=== PATIENT | male | born 1980 | race Caucasian/White ===

== ENCOUNTER 2016-11-15 07:59 | Observation (INO) | payer OTHER ==
[~2016-11-15] VITALS: Ht 185.4 cm; Wt 115.5 kg
[2016-11-15 08:47] LABS: BASO % 0.5 % (0.0-1.0); EOS # 0.5 K/mm3 (0.0-0.50); EOS % 7.6 % (0.0-3.0); LARGE UNSTAINED CELL # 0.1 K/mm3 (0.0-0.4); LARGE UNSTAINED CELL % 1.4 % (0.0-4.0); LYMPH # 1.1 K/mm3 (1.5-4.5); LYMPH % 16.7 % (24.0-44.0); MEAN CORPUSCULAR HEMOGLOBIN 29.7 pg (27.0-33.0); MEAN CORPUSCULAR HGB CONC 35.5 g/dl (32.0-36.5); MEAN CORPUSCULAR VOLUME 83.7 fl (80.0-96.0); MONO # 0.4 K/mm3 (0.0-0.8); MONO % 6.1 % (0.0-5.0); NEUTROPHILS # 4.5 K/mm3 (1.8-7.7); NEUTROPHILS % 67.7 % (36.0-66.0); PLATELET COUNT, AUTOMATED 264 k/mm3 (150-450); RED CELL DISTRIBUTION WIDTH 12.4 % (11.5-14.5); WHITE BLOOD COUNT 6.6 K/mm3 (4.0-10.0)
[2016-11-15 09:04] LABS: ANION GAP 8 MEQ/L (8-16); BLOOD UREA NITROGEN 18 MG/DL (7-18); CALCIUM LEVEL 9.1 MG/DL (8.5-10.1); CARBON DIOXIDE LEVEL 29 MEQ/L (21-32); CHLORIDE LEVEL 102 MEQ/L (98-107); CREATININE FOR GFR 1.36 MG/DL (0.70-1.30); GLOMERULAR FILTRATION RATE > 60.0 (>60); GLUCOSE, FASTING 97 MG/DL (70-105); POTASSIUM SERUM 3.8 MEQ/L (3.5-5.1); SODIUM LEVEL 139 MEQ/L (136-145)
--- NOTE | 2016-11-15 09:05 | ECGEPIP ---
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
[2016-11-15] MEDS ORDERED: PSEUDOEPHEDRINE 60 MG TAB PO ONE (09:15)
--- NOTE | 2016-11-15 09:15 | REP ---
CHEST X-RAY PA AND LATERAL: 11/15/2016 CLINICAL HISTORY: Cough. FINDINGS: No prior study. Two views show the lungs somewhat hypoinflated but without infiltrate, effusion or mass. There is minor lateral pleural thickening in both sides. No apical thickening scarring or pneumothorax. There are some crowded markings in the bases bilaterally. The heart size is not enlarged. There is no vascular redistribution or pulmonary edema. The aorta is normal. Airway is intact. The thorax shows no compression deformity of focal lesion. No free air under the diaphragm. IMPRESSION: 1. Some mild hypoinflation with crowded markings in the bases but no infiltrate, effusion, cardiomegaly, edema, mass or other significant finding. Signed by Molina Reed MD 11/15/2016 09:21 A
[2016-11-15] MEDS ORDERED: PRAZ2CAP PO (14:27)
[2016-11-15] MEDS ORDERED: HYDR25TAB PO (14:27)
[2016-11-15] MEDS ORDERED: SING10TA32 PO (14:27)
[2016-11-15] MEDS ORDERED: CETI10TA PO (14:27)
[2016-11-15] MEDS ORDERED: ALBU17IN INH (14:27)
[2016-11-15] MEDS ORDERED: ADV250INH INH (14:27)
[2016-11-15] MEDS ORDERED: TRAZ25TA PO (14:27)
[2016-11-15 15:25] VITALS: BP 134/78
[2016-11-15 17:10] VITALS: BP 129/77
--- NOTE | 2016-11-15 17:18 | EDDOCDS ---
Physician Documentation [facility] Name: Efraín Flores Age: 36 yrs Sex: Male : 1980 Arrival Date: 11/15/2016 Time: 07:59 Bed OBSERVATION Private MD: Disposition: 11/15/16 13:25 Hospitalization ordered by Narendra Atkinson for Inpatient Admission. Preliminary diagnosis is Syncope and collapse. - Bed requested for PCU. - Status is Inpatient Admission. kc3 - Condition is Stable. - Problem is new. - Symptoms are unchanged. Historical: - Allergies: no known allergies; - Home Meds: 1. Advair Diskus 250-50 mcg/dose Inhl dsdv 1 puff 2 times per day (Last dose: 11/14/2016) 2. Singulair 10 mg Oral tab 1 tab once daily (Last dose: 11/14/2016) 3. albuterol sulfate 90 mcg/actuation Inhl HFAA 2 puffs every 4-6 hours for Acute Asthma Attack (Last dose: 11/15/2016) 4. Zyrtec 10 mg Oral TbDL 10 mg daily (Last dose: 11/14/2016) 5. hydrochlorothiazide 25 mg Oral tab 1 tab once daily (Last dose: 11/14/2016) 6. trazodone 50 mg Oral tab nightly (Last dose: 11/14/2016) 7. prazosin 2 mg Oral cap nightly (Last dose: 11/14/2016) - PMHx: Asthma; Hypertension; Seasonal Allergies; night terrors; - PSHx: Vasectomy (2013); PRK Eye Surgery (2009); Appendectomy; Tonsillectomy; Jaw repair; - Social history: Smoking status: Patient states was never smoker of tobacco. No barriers to communication noted, The patient speaks fluent Croatian. - Family history: Not pertinent. - : The pt / caregiver states he / she is not on anticoagulants. Home medication list is obtained from the patient. - Exposure Risk Screening:: None identified. Vital Signs: 11/15 08:07 BP 126 / 80; Pulse 87; Resp 20; Temp 97.8(O); Pulse Ox 96% on R/A; Weight 108.86 kg / jjr 240 lbs (R); Height 6 ft. 1 in. (185.42 cm) (R); Pain 0/10; 08:48 BP 124 / 75 RA Supine (auto/lg); Pulse 85; jjr 08:48 BP 129 / 85 RA Sitting (auto/lg); Pulse 97; jjr 08:49 BP 119 / 75 RA Standing (auto/lg); Pulse 109; jjr 10:06 BP 131 / 69 (auto/); kc3 10:06 Pulse 82 MON; Pulse Ox 98% ; kc3 10:36 BP 122 / 71 (auto/); kc3 10:36 Pulse 86 MON; Pulse Ox 97% ; kc3 11:07 BP 121 / 79 (auto/); kc3 11:07 Pulse 82 MON; Pulse Ox 97% ; kc3 11:21 Pulse 84 MON; Pulse Ox 98% ; kc3 11:44 Pulse 92 MON; Pulse Ox 95% ; kc3 12:20 Pulse 80 MON; Pulse Ox 97% ; kc3 13:47 BP 134 / 78 (auto/); kc3 13:48 Pulse 80 MON; Pulse Ox 96% ; kc3 14:04 Pulse 74 MON; Pulse Ox 96% ; kc3 14:19 Pulse 84 MON; Pulse Ox 96% ; kc3 14:42 Pulse 78 MON; Pulse Ox 97% ; kc3 15:05 Pulse 84 MON; Pulse Ox 97% ; kc3 15:20 Pulse 82 MON; Pulse Ox 97% ; kc3 15:44 Pulse 76 MON; Pulse Ox 97% ; kc3 16:01 Pulse 84 MON; Pulse Ox 96% ; kc3 16:10 BP 119 / 69 (auto/); kc3 16:10 Pulse 82 MON; Pulse Ox 97% ; kc3 16:40 BP 120 / 93 (auto/); kc3 16:40 Pulse 86 MON; Pulse Ox 95% ; kc3 17:15 BP 119 / 76; Pulse 87; Resp 18; Temp 98.1(TE); Pulse Ox 97% on R/A; Pain 0/10; kc3 08:07 Body Mass Index 31.66 (108.86 kg, 185.42 cm) jjr MDM: 08:05 Orthostatic VS ordered. sd1 08:05 IV Saline Lock ordered. 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 sd1 08:06 CBC with Diff Ordered. EDMS 08:06 MED Profile Ordered. EDMS 08:07 ECG WITH READING ER PHYS+CARDIAG ordered. EDMS 08:08 Chest, 2 View (pa\E\lat) Ordered. EDMS 08:09 -Influenza A&B Rapid Antigen - Nose Ordered. EDMS 08:38 NS 0.9% 1000 ml IV at bolus once ordered. sd1 08:38 Sudafed 60 mg PO once ordered. sd1 09:27 CBC with Diff Reviewed. sd1 09:27 MED Profile Reviewed. sd1 09:27 -Influenza A&B Rapid Antigen - Nose Reviewed. sd1 09:28 REGULAR+DIET ordered. EDMS 10:10 Financial registration complete. lg 10:10 [facility] Payment Agreement was scanned into [employer] and attached to record. lg 11:13 EKG-ADULT Reviewed. sd1 11:13 Chest, 2 View (pa\E\lat) Reviewed. sd1 11:15 Redraw CIP &Troponin (put time in details section) ordered. sd1 11:15 Repeat EKG (put time details section) ordered. sd1 11:18 Redraw CIP &Troponin (put time in details section) complete. deg 11:18 Repeat EKG (put time details section) complete. deg 11:19 ECG WITH READING ER PHYS ordered. EDMS 11:19 CARDIAC MARKER PANEL Ordered. EDMS 12:40 CARDIAC INJURY PROFILE Ordered. EDMS 12:40 TROPONIN Ordered. EDMS 12:51 MED Profile Reviewed. sd1 13:17 MED Profile Reviewed. sd1 13:17 CARDIAC INJURY PROFILE Reviewed. sd1 13:17 TROPONIN Reviewed. sd1 13:21 D-Dimer Quant Ordered. EDMS 14:02 TROPONIN Ordered. EDMS 14:03 Admission / Observation Status ordered. EDMS 14:03 ELECTROCARDIOGRAM ADULT ordered. EDMS 14:03 ELECTROCARDIOGRAM ADULT ordered. EDMS 14:03 ELECTROCARDIOGRAM ADULT ordered. EDMS 14:03 REGULAR DIET ordered. EDMS 15:07 T-Sheet-- Draft Copy was scanned into [employer] and attached to record. gb 15:07 PCR was scanned into [employer] and attached to record. gb Administered Medications: 08:48 Drug: NS 0.9% 1000 ml [sodium chloride 0.9 % intravenous solution] Route: IV; Rate: jjr bolus; Site: left antecubital; 16:34 Follow up: IV Status: Completed infusion kc3 09:41 Drug: Sudafed 60 mg Route: PO; kc3 Signatures: Dispatcher [employer] EDMS Deya Doll MD MD sd1 Juventino Velazquezise, Dat Instructor Unit deg ZevTiera, Reg Reg gb Karie Ho, Reg Reg lg Sagrario Mccall, RN RN jjr Zafar Burton, Sissy Bianchi RN, mts,RN RN kc3 The chart was reviewed and I authenticate all verbal orders and agree with the evaluation and treatment provided.Corrections: (The following items were deleted from the chart) 12:40 12:36 CARDIAC INJURY PROFILE+LAB ordered. EDMS EDMS 12:40 12:36 TROPONIN+LAB ordered. EDMS EDMS Attachments: 10:10 [facility] Payment Agreement lg 15:07 T-Sheet-- Draft Copy gb MTDD
--- NOTE | 2016-11-15 17:18 | EDDOCDS ---
Nurse's Notes [facility] Name: Odin Flores Age: 36 yrs Sex: Male : 1980 Arrival Date: 11/15/2016 Time: 07:59 Bed OBSERVATION Private MD: Diagnosis: Syncope and collapse Presentation: 11/15 08:02 Presenting complaint: EMS states: cough and nasal congestion since this past Saturday jjr with tightness to left anterior chest, approx one hour ago during PT pt had coughing spell with dizziness and syncopal episode. Adult Sepsis Screening: The patient does not have new or worsening altered mentation. Patient's respiratory rate is less than 22. Systolic blood pressure is greater than 100. Patient has a qSOFA score of 0- Negative Sepsis Screen. Suicide/Homicide risk assessment- the patient denies having any suicidal and/or homicidal ideations and does not present with any other emotional, behavioral or mental health complaints. 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 Transition of care: patient was not received from another setting of care. 08:02 Acuity: JANET Level 3 jjr 08:02 Method Of Arrival: Ambulance jjr Triage Assessment: 08:11 General: Appears in no apparent distress, well nourished, well groomed, Behavior is jjr appropriate for age. Pain: Denies pain. HIV screening NA for this visit Offered previously. Neurological: Reports dizziness. Cardiovascular: Chest pain is denied. Respiratory: Airway is patent Respiratory effort is even, unlabored, Respiratory pattern is regular, Breath sounds are diminished bilaterally. Derm: Skin is dry, Skin is flushed, Skin temperature is warm. Historical: - Allergies: no known allergies; - Home Meds: 1. Advair Diskus 250-50 mcg/dose Inhl dsdv 1 puff 2 times per day (Last dose: 11/14/2016) 2. Singulair 10 mg Oral tab 1 tab once daily (Last dose: 11/14/2016) 3. albuterol sulfate 90 mcg/actuation Inhl HFAA 2 puffs every 4-6 hours for Acute Asthma Attack (Last dose: 11/15/2016) 4. Zyrtec 10 mg Oral TbDL 10 mg daily (Last dose: 11/14/2016) 5. hydrochlorothiazide 25 mg Oral tab 1 tab once daily (Last dose: 11/14/2016) 6. trazodone 50 mg Oral tab nightly (Last dose: 11/14/2016) 7. prazosin 2 mg Oral cap nightly (Last dose: 11/14/2016) - PMHx: Asthma; Hypertension; Seasonal Allergies; night terrors; - PSHx: Vasectomy (2013); PRK Eye Surgery (2009); Appendectomy; Tonsillectomy; Jaw repair; - Social history: Smoking status: Patient states was never smoker of tobacco. No barriers to communication noted, The patient speaks fluent Hebrew. - Family history: Not pertinent. - : The pt / caregiver states he / she is not on anticoagulants. Home medication list is obtained from the patient. - Exposure Risk Screening:: None identified. Screenin:13 Screening information is obtained from the patient. Fall risk: No risks identified. jjr Assistance ADL's: requires no assistance with activities of daily living. Abuse/DV Screen: The patient / caregiver reports he/she is: not in a situation that causes fear, pain or injury. Nutritional screening: No deficits noted. Advance Directives: There is no active DNR order. home support is adequate. Assessment: 08:13 Neurological: Level of Consciousness is awake, alert, Oriented to person, place, time. jjr Cardiovascular: Rhythm is sinus rhythm. 09:15 General: Appears in no apparent distress, comfortable, Behavior is appropriate for age, kc3 cooperative. Pain: Denies pain. Neurological: Level of Consciousness is awake, alert, obeys commands, Oriented to person, place, time. Cardiovascular: Rhythm is sinus rhythm No ectopy. Respiratory: Respiratory effort is even, unlabored, Respiratory pattern is regular, symmetrical. Derm: Skin is pink, warm & dry. 10:08 General: Pt reports having 2 episodes of "passing out while sitting in bed when I start kc3 coughing and then I get tunnel vision." No distress noted at this time. Dr. Irma sifuentes. . 11:00 General: Appears in no apparent distress, comfortable, Behavior is appropriate for age, kc3 cooperative. Pain: Denies pain. Neurological: Level of Consciousness is awake, alert, obeys commands, Oriented to person, place, time. Cardiovascular: Rhythm is sinus rhythm. Respiratory: Respiratory effort is even, unlabored, Respiratory pattern is regular, symmetrical. Derm: Skin is pink, warm & dry. 12:18 General: Appears in no apparent distress, comfortable, Behavior is appropriate for age, kc3 cooperative. Pain: Denies pain. Neurological: Level of Consciousness is awake, alert, obeys commands, Oriented to person, place, time. Cardiovascular: Rhythm is sinus rhythm. Respiratory: Airway is patent Respiratory effort is even, unlabored, Respiratory pattern is regular, symmetrical, Reports cough that is non-productive. Derm: Skin is pink, warm & dry. 13:00 General: Appears in no apparent distress, comfortable, Behavior is appropriate for age, kc3 cooperative. Pain: Denies pain. Neurological: Level of Consciousness is awake, alert, obeys commands, Oriented to person, place, time. Cardiovascular: Rhythm is sinus rhythm. Respiratory: Respiratory effort is even, unlabored. Derm: Skin is pink, warm & dry. 14:10 General: Appears in no apparent distress, comfortable, Behavior is appropriate for age, kc3 cooperative. Pain: Denies pain. Neurological: Level of Consciousness is awake, alert, obeys commands, Oriented to person, place, time. Cardiovascular: Rhythm is sinus rhythm. Respiratory: Respiratory effort is even, unlabored, Respiratory pattern is regular, symmetrical. Derm: Skin is pink, warm & dry. 14:53 General: Appears in no apparent distress, comfortable, Behavior is appropriate for age, kc3 cooperative. Pain: Denies pain. Neurological: Level of Consciousness is awake, alert, obeys commands, Oriented to person, place, time. Cardiovascular: Rhythm is sinus rhythm. Respiratory: Respiratory effort is even, unlabored, Respiratory pattern is regular, symmetrical. Derm: Skin is pink, warm & dry. 15:20 General: Pt noted to have syncopal episode after coughing. Pt with no distress after kc3 episode. Vital signs stable. Dr. Irma sifuentes. . 16:17 General: Appears in no apparent distress, comfortable, Behavior is appropriate for age, kc3 cooperative. General: Pt noted to have syncopal episode while coughing. No distress noted. Pt reports no complaints at this time. Vital signs stable. Will continue to monitor. . Pain: Denies pain. Neurological: Level of Consciousness is awake, alert, obeys commands, Oriented to person, place, time. Cardiovascular: Rhythm is sinus rhythm. Respiratory: Respiratory effort is even, unlabored. Derm: Skin is pink, warm & dry. 17:12 General: Appears in no apparent distress, comfortable, Behavior is appropriate for age, kc3 cooperative. Pain: Denies pain. Neurological: Level of Consciousness is awake, alert, obeys commands, Oriented to person, place, time. Cardiovascular: Rhythm is sinus rhythm No ectopy. Respiratory: Airway is patent Respiratory effort is even, unlabored, Respiratory pattern is regular, symmetrical. Derm: Skin is pink, warm & dry. Vital Signs: 08:07 BP 126 / 80; Pulse 87; Resp 20; Temp 97.8(O); Pulse Ox 96% on R/A; Weight 108.86 kg jjr (R); Height 6 ft. 1 in. (185.42 cm) (R); Pain 0/10; 08:48 BP 124 / 75 RA Supine (auto/lg); Pulse 85; jjr 08:48 BP 129 / 85 RA Sitting (auto/lg); Pulse 97; jjr 08:49 BP 119 / 75 RA Standing (auto/lg); Pulse 109; jjr 10:06 BP 131 / 69 (auto/); kc3 10:06 Pulse 82 MON; Pulse Ox 98% ; kc3 10:36 BP 122 / 71 (auto/); kc3 10:36 Pulse 86 MON; Pulse Ox 97% ; kc3 11:07 BP 121 / 79 (auto/); kc3 11:07 Pulse 82 MON; Pulse Ox 97% ; kc3 11:21 Pulse 84 MON; Pulse Ox 98% ; kc3 11:44 Pulse 92 MON; Pulse Ox 95% ; kc3 12:20 Pulse 80 MON; Pulse Ox 97% ; kc3 13:47 BP 134 / 78 (auto/); kc3 13:48 Pulse 80 MON; Pulse Ox 96% ; kc3 14:04 Pulse 74 MON; Pulse Ox 96% ; kc3 14:19 Pulse 84 MON; Pulse Ox 96% ; kc3 14:42 Pulse 78 MON; Pulse Ox 97% ; kc3 15:05 Pulse 84 MON; Pulse Ox 97% ; kc3 15:20 Pulse 82 MON; Pulse Ox 97% ; kc3 15:44 Pulse 76 MON; Pulse Ox 97% ; kc3 16:01 Pulse 84 MON; Pulse Ox 96% ; kc3 16:10 BP 119 / 69 (auto/); kc3 16:10 Pulse 82 MON; Pulse Ox 97% ; kc3 16:40 BP 120 / 93 (auto/); kc3 16:40 Pulse 86 MON; Pulse Ox 95% ; kc3 17:15 BP 119 / 76; Pulse 87; Resp 18; Temp 98.1(TE); Pulse Ox 97% on R/A; Pain 0/10; kc3 08:07 Body Mass Index 31.66 (108.86 kg, 185.42 cm) jjr Vitals: 08:07 Glucose Measurement D-stick done by EMS. Log In Time N/A - ambulance arrival. jjr ED Course: 08:00 Patient visited by Olga Velazquez, Machine Tool Dresser. deg 08:00 Patient moved to Waiting deg 08:01 Sagrario Mccall, RN is Primary Nurse. jjr 08:01 Patient moved to 18 jjr 08:04 Triage Initiated jjr 08:13 Patient visited by Sagrario Mccall, LETICIA. jjr 08:13 The patient / caregiver is instructed regarding the plan of care and ED course. Cardiac jjr monitor on. Pulse ox on. NIBP on. 08:15 Deya Doll MD is Attending Physician. sd1 08:20 Patient visited by Deya Doll MD. sd1 08:33 MED Profile Sent. jjr 08:33 CBC with Diff Sent. jjr 08:35 EKG done. (by ED staff). Reviewed by Deya Doll MD. rn1 08:39 -Influenza A&B Rapid Antigen - Nose Sent. jjr 09:17 Patient visited by Sissy Allen RN. kc3 09:44 EKG-ADULT Returned. EDMS 09:48 Chest, 2 View (pa\\E\\lat) Returned. EDMS 09:59 Patient visited by Yakov Hayden PCA. jlf 10:10 [facility] Payment Agreement was scanned into Language[employer] and attached to record. lg 10:12 Maintain field IV. Dressing intact. Site clean & dry. Gauge & site: 18G left AC. kc3 11:15 Patient moved to OBSERVATION sd1 12:00 Patient visited by Sissy Allen,LETICIA. kc3 12:19 Patient visited by Sissy Allen,LETICIA. kc3 13:25 Narendra Atkinson is Hospitalizing Provider. sd1 13:50 D-Dimer Quant Sent. kc3 14:25 Patient visited by Sissy Allen RN. kc3 15:07 T-Sheet-- Draft Copy was scanned into Language[employer] and attached to record. gb 15:07 PCR was scanned into [employer] and attached to record. gb 15:42 Patient visited by Sissy Allen RN. kc3 17:15 No procedures done that require assistance. kc3 Administered Medications: 08:48 Drug: NS 0.9% 1000 ml [sodium chloride 0.9 % intravenous solution] Route: IV; Rate: jjr bolus; Site: left antecubital; 16:34 Follow up: IV Status: Completed infusion kc3 09:41 Drug: Sudafed 60 mg Route: PO; kc3 Order Results: Lab Order: CBC with Diff; SPEC'M 11/15/16 08:29 Test: WHITE BLOOD COUNT; Value: 6.6; Range: 4.0-10.0; Units: K/mm3; Status: F Test: RED BLOOD COUNT; Value: 4.54; Range: 4.30-6.10; Units: M/mm3; Status: F Test: HEMOGLOBIN; Value: 13.5; Range: 14.0-18.0; Abnormal: Below low normal; Units: g/dl; Status: F Test: HEMATOCRIT; Value: 38.1; Range: 42.0-52.0; Abnormal: Below low normal; Units: %; Status: F Test: MEAN CORPUSCULAR VOLUME; Value: 83.7; Range: 80.0-96.0; Units: fl; Status: F Test: MEAN CORPUSCULAR HEMOGLOBIN; Value: 29.7; Range: 27.0-33.0; Units: pg; Status: F Test: MEAN CORPUSCULAR HGB CONC; Value: 35.5; Range: 32.0-36.5; Units: g/dl; Status: F Test: RED CELL DISTRIBUTION WIDTH; Value: 12.4; Range: 11.5-14.5; Units: %; Status: F Test: PLATELET COUNT, AUTOMATED; Value: 264; Range: 150-450; Units: k/mm3; Status: F Test: NEUTROPHILS %; Value: 67.7; Range: 36.0-66.0; Abnormal: Above high normal; Units: %; Status: F Test: LYMPH %; Value: 16.7; Range: 24.0-44.0; Abnormal: Below low normal; Units: %; Status: F Test: MONO %; Value: 6.1; Range: 0.0-5.0; Abnormal: Above high normal; Units: %; Status: F Test: EOS %; Value: 7.6; Range: 0.0-3.0; Abnormal: Above high normal; Units: %; Status: F Test: BASO %; Value: 0.5; Range: 0.0-1.0; Units: %; Status: F Test: LARGE UNSTAINED CELL %; Value: 1.4; Range: 0.0-4.0; Units: %; Status: F Test: NEUTROPHILS #; Value: 4.5; Range: 1.8-7.7; Units: K/mm3; Status: F Test: LYMPH #; Value: 1.1; Range: 1.5-4.5; Abnormal: Below low normal; Units: K/mm3; Status: F Test: MONO #; Value: 0.4; Range: 0.0-0.8; Units: K/mm3; Status: F Test: EOS #; Value: 0.5; Range: 0.0-0.50; Units: K/mm3; Status: F Test: BASO #; Value: 0.0; Range: 0.0-0.2; Units: K/mm3; Status: F Test: LARGE UNSTAINED CELL #; Value: 0.1; Range: 0.0-0.4; Units: K/mm3; Status: F Lab Order: MED Profile; SPEC'M 11/15/16 08:29 Test: GLUCOSE, FASTING; Value: 97; Range: 70-105; Units: MG/DL; Status: F Test: BLOOD UREA NITROGEN; Value: 18; Range: 7-18; Units: MG/DL; Status: F Test: CREATININE FOR GFR; Value: 1.36; Range: 0.70-1.30; Abnormal: Above high normal; Units: MG/DL; Status: F Test: GLOMERULAR FILTRATION RATE; Value: > 60.0; Range: >60; Status: F Test: SODIUM LEVEL; Value: 139; Range: 136-145; Units: MEQ/L; Status: F Test: POTASSIUM SERUM; Value: 3.8; Range: 3.5-5.1; Units: MEQ/L; Status: F Test: CHLORIDE LEVEL; Value: 102; Range: 98-107; Units: MEQ/L; Status: F Test: CARBON DIOXIDE LEVEL; Value: 29; Range: 21-32; Units: MEQ/L; Status: F Test: ANION GAP; Value: 8; Range: 8-16; Units: MEQ/L; Status: F Test: CALCIUM LEVEL; Value: 9.1; Range: 8.5-10.1; Units: MG/DL; Status: F Test Note: ; Units are mL/min/1.73 m2 Chronic Kidney Disease Staging per NKF: Stage I & II GFR >=60 Normal to Mildly Decreased Stage III GFR 30-59 Moderately Decreased Stage IV GFR 15-29 Severely Decreased Stage V GFR <15 Very Little GFR Left ESRD GFR <15 on COTTON CLEANER Lab Order: -Influenza A&B Rapid Antigen - Nose; SPEC'M 11/15/16 08:29 Test: INFLUENZA A RAPID SCR by ICA; Value: INFLUENZA A RESULTS NEGATIVE; Status: F Test: INFLUENZA A RAPID SCR by ICA; Value: Comments:; Status: F Test: INFLUENZA B RAPID SCR by ICA; Value: INFLUENZA B RESULTS NEGATIVE; Status: F Test Note: ; The Influenza test is a direct rapid immunoassay for the qualitative detection of Influenza viral antigen. Cell culture (Viral Culture) testing should be considered to confirm NEGATIVE results and to assist in detecting other viruses that can provide similar clinical symptoms. Please contact the lab within 24 hours [phone] if confirmatory testing is desired. Lab Order: CARDIAC MARKER PANEL; SPEC'M 11/15/16 13:29 Test: CPK CREATINE PHOSPHOKINASE; Value: 194; Range: 39-308; Units: U/L; Status: F Test: CK-MB VALUE MASS; Value: 2.9; Range: 0.0-3.6; Units: NG/ML; Status: F Test: MB/CK RELATIVE INDEX; Value: 1.49; Range: < OR =4; Status: F Test: TROPONIN I; Value: < 0.02; Range: < 0.10; Units: NG/ML; Status: F Test Note: ; DIAGNOSIS CRITERIA MMB ng/ml Relative Index (RI) NON-AMI < or = 5 N/A MANLEY ZONE > 5 < or = 4 AMI > 5 > 4 Lab Order: CARDIAC INJURY PROFILE; SPEC'M 11/15/16 08:29 Test: CPK CREATINE PHOSPHOKINASE; Value: 211; Range: 39-308; Units: U/L; Status: F Test: CK-MB VALUE MASS; Value: 3.3; Range: 0.0-3.6; Units: NG/ML; Status: F Test: MB/CK RELATIVE INDEX; Value: 1.56; Range: < OR =4; Status: F Test Note: ; DIAGNOSIS CRITERIA MMB ng/ml Relative Index (RI) NON-AMI < or = 5 N/A MANLEY ZONE > 5 < or = 4 AMI > 5 > 4 Lab Order: TROPONIN; SPEC'M 11/15/16 08:29 Test: TROPONIN I; Value: < 0.02; Range: < 0.10; Units: NG/ML; Status: F Test Note: ; Troponin I Reference Interval for Qwite LOCI: 99th Percentile= 0.00-0.045 ng/ml Risk Stratification: <= 0.10 ng/ml Decreased Risk for Adverse Clinical Events. 0.10-1.50 ng/ml Increased Risk for Adverse Clinical Events. Evaluation of additional criterion and/or repeat testing in 2-6 hours is suggested to rule out myocardial damage. >= 1.50 ng/ml Indicative of Myocardial Injury. 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 Two views show the lungs somewhat hypoinflated but; without infiltrate, effusion or mass. There is minor lateral pleural thickening; in both sides. No apical thickening scarring or pneumothorax. There are some; crowded markings in the bases bilaterally. The heart size is not enlarged.; There is no vascular redistribution or pulmonary edema. The aorta is normal.; Airway is intact.; ; The thorax shows no compression deformity of focal lesion. No free air under the; diaphragm.; ; IMPRESSION:; ; 1. Some mild hypoinflation with crowded markings in the bases but no infiltrate,; effusion, cardiomegaly, edema, mass or other significant finding.; ; ; Signed by; Molina Reed MD 11/15/2016 09:21 A; Outcome: 13:25 Decision to Hospitalize by Provider. sd1 17:15 Discharge Assessment: patient administered narcotics - no. The following High Risk kc3 Discharge criteria are identified: None. Admitted to PCU accompanied by nurse, on monitor, with chart. Condition: stable. No special radiology studies were completed. Property :Personal belongings accompany Pt. 17:17 Patient left the ED. kc3 Signatures: Dispatcher [employer] EDND Deya Doll MD MD sd1 Olga Velazquez, Machine Tool Dresser Unit deg Tiera Brothers, Reg Reg gb Karie Ho, Reg Reg lg Sagrario Mccall, Yakov Krueger RN, ABELINO ASSISTED LIVING DIRECTOR Jean Marie Landers rn1 Sissy Allen,LETICIA RN kc3 MTDD
[2016-11-15] MEDS: NS 1,000 ML IV SCH (17:43)
[2016-11-15] MEDS: ENOXAPARIN 30 MG/0.3 ML SYR (J1650) SC SCH (17:44)
[2016-11-15 19:44] VITALS: BP_SYST 139; BP_SYST 145; BP_DIAS 74; BP_DIAS 83; BP_DIAS 89
--- NOTE | 2016-11-15 19:48 | HPE ---
DATE OF ADMISSION: 11/15/2016 REASON FOR ADMISSION: Syncopal episode. PRIMARY CARE PROVIDER: The patient goes to [facility] at [place]. HISTORY OF PRESENT ILLNESS: The patient is a 36-year-old male with past medical history significant for asthma, hypertension, presented to the emergency room after had a syncopal episode earlier today. He stated he has been having flu-like symptoms since last Saturday with some chest tightness over the left side of his chest, nonradiating, not associated with any dizziness, shortness of breath or diaphoresis. Stated the pain lasted about 5 minutes. Today was radiating down his left arm. He had one episode around 7:00. He has also been having multiple syncopal episodes, usually associated with cough. EKG was done in the emergency room, which showed sinus rhythm with some arrhythmia, early polarization. Two sets of troponins were negative. The patient had mildly elevated creatinine 1.3. In the emergency room, the patient was given one bolus of normal saline. He was given one dose of Sudafed for his congestion, however, because he was complaining of chest pain with some irregularities on EKG he was admitted for cardiac rule out under hospitalist service. REVIEW OF SYSTEMS: 12-point review of systems obtained, all of which was negative except for those mentioned above. PAST MEDICAL HISTORY: Significant for asthma, hypertension, seasonal allergies, night terrors, sleep apnea with C-PAP machine. ALLERGIES: No known drug allergies. PAST SURGICAL HISTORY: Significant for vasectomy, appendectomy, tonsillectomy, jaw repair and eye surgery in 2009. HOME MEDICATIONS: Include Advair Diskus, Singulair, albuterol, Zyrtec, HCTZ, trazodone, prazosin. SOCIAL HISTORY: The patient lives with his and four kids. No alcohol or tobacco use. FAMILY HISTORY: The patient denies any family history of heart disease. States his mother has history of hypertension, COPD. Father has history of diabetes. PHYSICAL EXAMINATION: Vital signs: Blood pressure 126/80, pulse 87, respiratory rate 20, temperature 97.8, pulse oximetry 96% on room air. HEENT: Pupils equal, round, reactive to light and accommodation. Neck supple. No jugular venous distention (JVD). Lungs: Clear bilaterally. Abdomen: Soft, nontender, nondistended. Extremities: No clubbing, cyanosis or edema. Cardiac: Regular rate and rhythm. LABORATORY FINDINGS: Sodium 139, potassium 3.8, chloride 102, BUN 18, creatinine 1.36, troponin negative times two. CK 219, repeat was 194, WBC 6.6, hemoglobin 13.5, hematocrit 30.1, platelet count 264, D-dimer 270. Chest x-ray was done, which was negative for any infiltrate, effusion, cardiomegaly, edema or mass. ASSESSMENT/PLAN 1. Chest pain. May be secondary to condition of upper respiratory infection. We will admit the patient to telemetry and monitor on cardiac monitoring. Repeat troponins times three sets. Repeat EKG. The patient has no family history of cardiac disease, a VALERIA score of one. 2. History of asthma. We will continue the patient's inhaler. 3. History of sleep apnea. We will continue the patient's C-PAP machine. 4. History of hypertension. We will hold the patient's current blood pressure medication in light of acute kidney injury. 5. History of acute kidney injury. The patient received one bolus of normal saline. We will repeat labs in the morning, hold HCTZ. 6. Deep venous thrombosis (DVT) prophylaxis of Lovenox, subcutaneously.
--- NOTE | 2016-11-15 21:20 | ECGEPIP ---
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
[2016-11-15 23:47] VITALS: BP 131/85
[2016-11-16 03:01] VITALS: BP_SYST 122; BP_SYST 130; BP_SYST 135; BP_DIAS 74; BP_DIAS 84; BP_DIAS 90
[2016-11-16] MEDS: NS 1,000 ML IV SCH (04:22)
[2016-11-16 05:35] LABS: BASO % 0.5 % (0.0-1.0); EOS # 0.5 K/mm3 (0.0-0.50); EOS % 7.2 % (0.0-3.0); LARGE UNSTAINED CELL # 0.2 K/mm3 (0.0-0.4); LARGE UNSTAINED CELL % 2.1 % (0.0-4.0); LYMPH # 1.7 K/mm3 (1.5-4.5); LYMPH % 23.1 % (24.0-44.0); MEAN CORPUSCULAR HEMOGLOBIN 29.6 pg (27.0-33.0); MEAN CORPUSCULAR HGB CONC 34.8 g/dl (32.0-36.5); MEAN CORPUSCULAR VOLUME 85.1 fl (80.0-96.0); MONO # 0.4 K/mm3 (0.0-0.8); MONO % 5.9 % (0.0-5.0); NEUTROPHILS # 4.5 K/mm3 (1.8-7.7); NEUTROPHILS % 61.1 % (36.0-66.0); PLATELET COUNT, AUTOMATED 268 k/mm3 (150-450); RED CELL DISTRIBUTION WIDTH 12.3 % (11.5-14.5); WHITE BLOOD COUNT 7.3 K/mm3 (4.0-10.0)
[2016-11-16 05:50] LABS: ALBUMIN 3.4 GM/DL (3.2-5.2); ALBUMIN/GLOBULIN RATIO 1.21 (1.00-1.93); ALKALINE PHOSPHATASE 65 U/L (45-117); ALT/SGPT 20 U/L (12-78); ANION GAP 8 MEQ/L (8-16); AST/SGOT 13 U/L (15-37); BILIRUBIN,TOTAL 0.6 MG/DL (0.2-1.0); BLOOD UREA NITROGEN 15 MG/DL (7-18); CALCIUM LEVEL 8.4 MG/DL (8.5-10.1); CARBON DIOXIDE LEVEL 27 MEQ/L (21-32); CHLORIDE LEVEL 108 MEQ/L (98-107); CREATININE FOR GFR 1.16 MG/DL (0.70-1.30); GLOMERULAR FILTRATION RATE > 60.0 (>60); GLUCOSE, FASTING 87 MG/DL (70-105); MAGNESIUM LEVEL 2.1 MG/DL (1.8-2.4); POTASSIUM SERUM 3.9 MEQ/L (3.5-5.1); SODIUM LEVEL 143 MEQ/L (136-145); TOTAL PROTEIN 6.2 GM/DL (6.4-8.2)
[2016-11-16] MEDS: ENOXAPARIN 30 MG/0.3 ML SYR (J1650) SC SCH (09:21)
[2016-11-16] MEDS ORDERED: guaiFENesin DM LIQ 10ML UD PO PRN (10:30)
[2016-11-16 12:00] VITALS: BP 137/94
[2016-11-16] MEDS ORDERED: GUAIDM5UD PO (13:29)
--- NOTE | 2016-11-16 17:35 | DSES ---
DATE OF ADMISSION: 11/15/2016 DATE OF DISCHARGE: ATTENDING PHYSICIAN: Dr. Suzie Guadarrama PRIMARY CARE PHYSICIAN: Unknown. REFERRING PHYSICIAN: None. CONSULTING PHYSICIAN: None. CONDITION ON DISCHARGE: Stable. FINAL DIAGNOSIS: Vasovagal syncope. PROCEDURES: None. HISTORY OF PRESENT ILLNESS: Patient is a 36-year-old male with past medical history of asthma and hypertension who presented to the emergency room after having a syncopal episode earlier today. He stated that he was having flu-like symptoms last Saturday with some chest tightness over the left side of his chest radiating, not associated with any dizziness or shortness of breath or diaphoresis. He said that the pain lasted for about 5 minutes and did not recur. Patient noted that he has been having this persistent cough, and usually after these coughing episodes he has a syncopal episode. Electrocardiogram was done in the emergency room that showed sinus rhythm with some early repolarization. Two sets of troponins were completed and were negative. Patient acquired several sets of cardiac enzymes, all of which have remained negative throughout the hospital course. A total of five sets were acquired. HOSPITAL COURSE: 1. Syncope likely secondary to vasovagal episode, less likely secondary to cardiogenic etiology less likely secondary to neurogenic etiology less likely secondary to orthostatic hypotension. Patient's blood pressure checked in the emergency room and throughout the hospital course orthostatics have remained negative. Patient was put on telemetry and there have been no cardiac events overnight or throughout the entire course of his hospital stay. Repeat electrocardiogram revealed no secondary changes. Troponin on five sets have remained negative. Patient's syncopal episode was likely secondary to vasovagal episode he was given guaifenesin and dextromethorphan for his coughing and has not experienced any further episodes. 2. History of asthma. Continue with patient's inhaler. 3. History of sleep apnea. Continue with continuous positive airway pressure (CPAP) machine. 4. History of hypertension. Patient was held on his blood pressure medications while in the hospital. 5. Patient has acute kidney injury. His blood pressure medications and hydrochlorothiazide were held. 6. Deep vein thrombosis prophylaxis. Patient was put on Lovenox subcutaneous. DISCHARGE MEDICATIONS: Patient was discharged home with the following medications - albuterol inhaled every 4 hours as needed shortness of breath - Cetirizine 10 mg by mouth at bedtime - Montelukast 10 mg by mouth at bedtime - Advair one puff inhaled twice a day - trazodone 25 mg by mouth at bedtime MEDICATIONS STOPPED: Include hydrochlorothiazide 25 mg by mouth every day and Prazosin 2 mg by mouth at bedtime NEW MEDICATIONS PRESCRIBED: Include Guaifenesin and dextromethorphan 500 mL by mouth every 4 hours as needed cough DISCHARGE INSTRUCTIONS: Patient was advised to follow up with his primary care provider within the next 7 days. He has been advised to remain compliant with treatment plan and medication. He was advised to call to confirm with our scheduled appointment. Patient was advised to follow up with his primary care provider to restart his blood pressure medications. He has been advised to return to the emergency room if he experiencing any difficulties or any problems. TIME SPENT ON DISCHARGE: 35 minutes. DODIE
--- NOTE | 2016-11-17 08:52 | ECGEPIP ---
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
--- NOTE | 2016-11-17 08:56 | ECGEPIP ---
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
--- NOTE | 2016-11-17 18:18 | EDDOCDS ---
Physician Documentation [facility] Name: Efraín Flores Age: 36 yrs Sex: Male : 1980 Arrival Date: 11/15/2016 Time: 07:59 Bed OBSERVATION Private MD: Disposition: 11/15/16 13:25 Hospitalization ordered by Narendra Atkinson for Inpatient Admission. Preliminary diagnosis is Syncope and collapse. - Bed requested for PCU. - Status is Inpatient Admission. kc3 - Condition is Stable. - Problem is new. - Symptoms are unchanged. Historical: - Allergies: no known allergies; - Home Meds: 1. Advair Diskus 250-50 mcg/dose Inhl dsdv 1 puff 2 times per day (Last dose: 11/14/2016) 2. Singulair 10 mg Oral tab 1 tab once daily (Last dose: 11/14/2016) 3. albuterol sulfate 90 mcg/actuation Inhl HFAA 2 puffs every 4-6 hours for Acute Asthma Attack (Last dose: 11/15/2016) 4. Zyrtec 10 mg Oral TbDL 10 mg daily (Last dose: 11/14/2016) 5. hydrochlorothiazide 25 mg Oral tab 1 tab once daily (Last dose: 11/14/2016) 6. trazodone 50 mg Oral tab nightly (Last dose: 11/14/2016) 7. prazosin 2 mg Oral cap nightly (Last dose: 11/14/2016) - PMHx: Asthma; Hypertension; Seasonal Allergies; night terrors; - PSHx: Vasectomy (2013); PRK Eye Surgery (2009); Appendectomy; Tonsillectomy; Jaw repair; - Social history: Smoking status: Patient states was never smoker of tobacco. No barriers to communication noted, The patient speaks fluent [place]. - Family history: Not pertinent. - : The pt / caregiver states he / she is not on anticoagulants. Home medication list is obtained from the patient. - Exposure Risk Screening:: None identified. Vital Signs: 11/15 08:07 BP 126 / 80; Pulse 87; Resp 20; Temp 97.8(O); Pulse Ox 96% on R/A; Weight 108.86 kg / jjr 240 lbs (R); Height 6 ft. 1 in. (185.42 cm) (R); Pain 0/10; 08:48 BP 124 / 75 RA Supine (auto/lg); Pulse 85; jjr 08:48 BP 129 / 85 RA Sitting (auto/lg); Pulse 97; jjr 08:49 BP 119 / 75 RA Standing (auto/lg); Pulse 109; jjr 10:06 BP 131 / 69 (auto/); kc3 10:06 Pulse 82 MON; Pulse Ox 98% ; kc3 10:36 BP 122 / 71 (auto/); kc3 10:36 Pulse 86 MON; Pulse Ox 97% ; kc3 11:07 BP 121 / 79 (auto/); kc3 11:07 Pulse 82 MON; Pulse Ox 97% ; kc3 11:21 Pulse 84 MON; Pulse Ox 98% ; kc3 11:44 Pulse 92 MON; Pulse Ox 95% ; kc3 12:20 Pulse 80 MON; Pulse Ox 97% ; kc3 13:47 BP 134 / 78 (auto/); kc3 13:48 Pulse 80 MON; Pulse Ox 96% ; kc3 14:04 Pulse 74 MON; Pulse Ox 96% ; kc3 14:19 Pulse 84 MON; Pulse Ox 96% ; kc3 14:42 Pulse 78 MON; Pulse Ox 97% ; kc3 15:05 Pulse 84 MON; Pulse Ox 97% ; kc3 15:20 Pulse 82 MON; Pulse Ox 97% ; kc3 15:44 Pulse 76 MON; Pulse Ox 97% ; kc3 16:01 Pulse 84 MON; Pulse Ox 96% ; kc3 16:10 BP 119 / 69 (auto/); kc3 16:10 Pulse 82 MON; Pulse Ox 97% ; kc3 16:40 BP 120 / 93 (auto/); kc3 16:40 Pulse 86 MON; Pulse Ox 95% ; kc3 17:15 BP 119 / 76; Pulse 87; Resp 18; Temp 98.1(TE); Pulse Ox 97% on R/A; Pain 0/10; kc3 08:07 Body Mass Index 31.66 (108.86 kg, 185.42 cm) jjr MDM: 08:05 Orthostatic VS ordered. sd1 08:05 IV Saline Lock ordered. sd1 08:06 Balance Screwhead Polisher/Pulse Ox/q 60 min VS ordered. sd1 08:06 CBC with Diff Ordered. EDMS 08:06 MED Profile Ordered. EDMS 08:07 ECG WITH READING ER PHYS+CARDIAG ordered. EDMS 08:08 Chest, 2 View (pa\E\lat) Ordered. EDMS 08:09 -Influenza A&B Rapid Antigen - Nose Ordered. EDMS 08:38 NS 0.9% 1000 ml IV at bolus once ordered. sd1 08:38 Sudafed 60 mg PO once ordered. sd1 09:27 CBC with Diff Reviewed. sd1 09:27 MED Profile Reviewed. sd1 09:27 -Influenza A&B Rapid Antigen - Nose Reviewed. sd1 09:28 REGULAR+DIET ordered. EDMS 10:10 Financial registration complete. lg 10:10 [facility] Payment Agreement was scanned into [employer] and attached to record. lg 11:13 EKG-ADULT Reviewed. sd1 11:13 Chest, 2 View (pa\E\lat) Reviewed. sd1 11:15 Redraw CIP &Troponin (put time in details section) ordered. sd1 11:15 Repeat EKG (put time details section) ordered. sd1 11:18 Redraw CIP &Troponin (put time in details section) complete. deg 11:18 Repeat EKG (put time details section) complete. deg 11:19 ECG WITH READING ER PHYS ordered. EDMS 11:19 CARDIAC MARKER PANEL Ordered. EDMS 12:40 CARDIAC INJURY PROFILE Ordered. EDMS 12:40 TROPONIN Ordered. EDMS 12:51 MED Profile Reviewed. sd1 13:17 MED Profile Reviewed. sd1 13:17 CARDIAC INJURY PROFILE Reviewed. sd1 13:17 TROPONIN Reviewed. sd1 13:21 D-Dimer Quant Ordered. EDMS 14:02 TROPONIN Ordered. EDMS 14:03 Admission / Observation Status ordered. EDMS 14:03 ELECTROCARDIOGRAM ADULT ordered. EDMS 14:03 ELECTROCARDIOGRAM ADULT ordered. EDMS 14:03 ELECTROCARDIOGRAM ADULT ordered. EDMS 14:03 REGULAR DIET ordered. EDMS 15:07 T-Sheet-- Draft Copy was scanned into [employer] and attached to record. gb 15:07 PCR was scanned into [employer] and attached to record. gb 11/16 09:44 ECG/EKG was scanned into [employer] and attached to record. gb Administered Medications: 11/15 08:48 Drug: NS 0.9% 1000 ml [sodium chloride 0.9 % intravenous solution] Route: IV; Rate: jjr bolus; Site: left antecubital; 16:34 Follow up: IV Status: Completed infusion kc3 09:41 Drug: Sudafed 60 mg Route: PO; kc3 Signatures: Dispatcher [employer] EDMS Deya Doll MD MD sd1 Olga Velazquez, Supervisor Pre Wave Unit deg Tiera Brothers, Reg Reg gb Karie Ho, Reg Reg lg Sagrario Mccall, RN Zafar Godoy, RN Sissy Bianchi mts,LETICIA RN kc3 The chart was reviewed and I authenticate all verbal orders and agree with the evaluation and treatment provided.Corrections: (The following items were deleted from the chart) 12:40 12:36 CARDIAC INJURY PROFILE+LAB ordered. EDMS EDMS 12:40 12:36 TROPONIN+LAB ordered. EDMS EDMS Attachments: 10:10 [facility] Payment Agreement lg 15:07 T-Sheet-- Draft Copy gb 11/16 09:44 ECG/EKG Chart Complete MTDD
--- NOTE | 2016-11-17 18:18 | EDDOCDS ---
Physician Documentation [facility] Name: Efraín Flores Age: 36 yrs Sex: Male : 1980 Arrival Date: 11/15/2016 Time: 07:59 Bed OBSERVATION Private MD: Disposition: 11/15/16 13:25 Hospitalization ordered by Narendra Atkinsno for Inpatient Admission. Preliminary diagnosis is Syncope and collapse. - Bed requested for PCU. - Status is Inpatient Admission. kc3 - Condition is Stable. - Problem is new. - Symptoms are unchanged. Historical: - Allergies: no known allergies; - Home Meds: 1. Advair Diskus 250-50 mcg/dose Inhl dsdv 1 puff 2 times per day (Last dose: 11/14/2016) 2. Singulair 10 mg Oral tab 1 tab once daily (Last dose: 11/14/2016) 3. albuterol sulfate 90 mcg/actuation Inhl HFAA 2 puffs every 4-6 hours for Acute Asthma Attack (Last dose: 11/15/2016) 4. Zyrtec 10 mg Oral TbDL 10 mg daily (Last dose: 11/14/2016) 5. hydrochlorothiazide 25 mg Oral tab 1 tab once daily (Last dose: 11/14/2016) 6. trazodone 50 mg Oral tab nightly (Last dose: 11/14/2016) 7. prazosin 2 mg Oral cap nightly (Last dose: 11/14/2016) - PMHx: Asthma; Hypertension; Seasonal Allergies; night terrors; - PSHx: Vasectomy (2013); PRK Eye Surgery (2009); Appendectomy; Tonsillectomy; Jaw repair; - Social history: Smoking status: Patient states was never smoker of tobacco. No barriers to communication noted, The patient speaks fluent [place]. - Family history: Not pertinent. - : The pt / caregiver states he / she is not on anticoagulants. Home medication list is obtained from the patient. - Exposure Risk Screening:: None identified. Vital Signs: 11/15 08:07 BP 126 / 80; Pulse 87; Resp 20; Temp 97.8(O); Pulse Ox 96% on R/A; Weight 108.86 kg / jjr 240 lbs (R); Height 6 ft. 1 in. (185.42 cm) (R); Pain 0/10; 08:48 BP 124 / 75 RA Supine (auto/lg); Pulse 85; jjr 08:48 BP 129 / 85 RA Sitting (auto/lg); Pulse 97; jjr 08:49 BP 119 / 75 RA Standing (auto/lg); Pulse 109; jjr 10:06 BP 131 / 69 (auto/); kc3 10:06 Pulse 82 MON; Pulse Ox 98% ; kc3 10:36 BP 122 / 71 (auto/); kc3 10:36 Pulse 86 MON; Pulse Ox 97% ; kc3 11:07 BP 121 / 79 (auto/); kc3 11:07 Pulse 82 MON; Pulse Ox 97% ; kc3 11:21 Pulse 84 MON; Pulse Ox 98% ; kc3 11:44 Pulse 92 MON; Pulse Ox 95% ; kc3 12:20 Pulse 80 MON; Pulse Ox 97% ; kc3 13:47 BP 134 / 78 (auto/); kc3 13:48 Pulse 80 MON; Pulse Ox 96% ; kc3 14:04 Pulse 74 MON; Pulse Ox 96% ; kc3 14:19 Pulse 84 MON; Pulse Ox 96% ; kc3 14:42 Pulse 78 MON; Pulse Ox 97% ; kc3 15:05 Pulse 84 MON; Pulse Ox 97% ; kc3 15:20 Pulse 82 MON; Pulse Ox 97% ; kc3 15:44 Pulse 76 MON; Pulse Ox 97% ; kc3 16:01 Pulse 84 MON; Pulse Ox 96% ; kc3 16:10 BP 119 / 69 (auto/); kc3 16:10 Pulse 82 MON; Pulse Ox 97% ; kc3 16:40 BP 120 / 93 (auto/); kc3 16:40 Pulse 86 MON; Pulse Ox 95% ; kc3 17:15 BP 119 / 76; Pulse 87; Resp 18; Temp 98.1(TE); Pulse Ox 97% on R/A; Pain 0/10; kc3 08:07 Body Mass Index 31.66 (108.86 kg, 185.42 cm) jjr MDM: 08:05 Orthostatic VS ordered. sd1 08:05 IV Saline Lock ordered. sd1 08:06 Election Supervisor/Pulse Ox/q 60 min VS ordered. sd1 08:06 CBC with Diff Ordered. EDMS 08:06 MED Profile Ordered. EDMS 08:07 ECG WITH READING ER PHYS+CARDIAG ordered. EDMS 08:08 Chest, 2 View (pa\E\lat) Ordered. EDMS 08:09 -Influenza A&B Rapid Antigen - Nose Ordered. EDMS 08:38 NS 0.9% 1000 ml IV at bolus once ordered. sd1 08:38 Sudafed 60 mg PO once ordered. sd1 09:27 CBC with Diff Reviewed. sd1 09:27 MED Profile Reviewed. sd1 09:27 -Influenza A&B Rapid Antigen - Nose Reviewed. sd1 09:28 REGULAR+DIET ordered. EDMS 10:10 Financial registration complete. lg 10:10 [facility] Payment Agreement was scanned into [employer] and attached to record. lg 11:13 EKG-ADULT Reviewed. sd1 11:13 Chest, 2 View (pa\E\lat) Reviewed. sd1 11:15 Redraw CIP &Troponin (put time in details section) ordered. sd1 11:15 Repeat EKG (put time details section) ordered. sd1 11:18 Redraw CIP &Troponin (put time in details section) complete. deg 11:18 Repeat EKG (put time details section) complete. deg 11:19 ECG WITH READING ER PHYS ordered. EDMS 11:19 CARDIAC MARKER PANEL Ordered. EDMS 12:40 CARDIAC INJURY PROFILE Ordered. EDMS 12:40 TROPONIN Ordered. EDMS 12:51 MED Profile Reviewed. sd1 13:17 MED Profile Reviewed. sd1 13:17 CARDIAC INJURY PROFILE Reviewed. sd1 13:17 TROPONIN Reviewed. sd1 13:21 D-Dimer Quant Ordered. EDMS 14:02 TROPONIN Ordered. EDMS 14:03 Admission / Observation Status ordered. EDMS 14:03 ELECTROCARDIOGRAM ADULT ordered. EDMS 14:03 ELECTROCARDIOGRAM ADULT ordered. EDMS 14:03 ELECTROCARDIOGRAM ADULT ordered. EDMS 14:03 REGULAR DIET ordered. EDMS 15:07 T-Sheet-- Draft Copy was scanned into [employer] and attached to record. gb 15:07 PCR was scanned into [employer] and attached to record. gb 11/16 09:44 ECG/EKG was scanned into [employer] and attached to record. gb Administered Medications: 11/15 08:48 Drug: NS 0.9% 1000 ml [sodium chloride 0.9 % intravenous solution] Route: IV; Rate: jjr bolus; Site: left antecubital; 16:34 Follow up: IV Status: Completed infusion kc3 09:41 Drug: Sudafed 60 mg Route: PO; kc3 Signatures: Dispatcher [employer] EDMS Deya Doll MD MD sd1 Olga Velazquez, Retanner Unit deg Tiera Brothers, Reg Reg gb Karie Ho, Reg Reg lg Sagrario Mccall, RN Zafar Godoy, RN Sissy Bianchi mts,LETICIA RN kc3 The chart was reviewed and I authenticate all verbal orders and agree with the evaluation and treatment provided.Corrections: (The following items were deleted from the chart) 12:40 12:36 CARDIAC INJURY PROFILE+LAB ordered. EDMS EDMS 12:40 12:36 TROPONIN+LAB ordered. EDMS EDMS Attachments: 10:10 [facility] Payment Agreement lg 15:07 T-Sheet-- Draft Copy gb 11/16 09:44 ECG/EKG Chart Complete MTDD
--- NOTE | 2016-11-17 18:19 | EDDOCDS ---
Nurse's Notes [facility] Name: Odin Flores Age: 36 yrs Sex: Male : 1980 Arrival Date: 11/15/2016 Time: 07:59 Bed OBSERVATION Private MD: Diagnosis: Syncope and collapse Presentation: 11/15 08:02 Presenting complaint: EMS states: cough and nasal congestion since this past Saturday jjr with tightness to left anterior chest, approx one hour ago during PT pt had coughing spell with dizziness and syncopal episode. Adult Sepsis Screening: The patient does not have new or worsening altered mentation. Patient's respiratory rate is less than 22. Systolic blood pressure is greater than 100. Patient has a qSOFA score of 0- Negative Sepsis Screen. Suicide/Homicide risk assessment- the patient denies having any suicidal and/or homicidal ideations and does not present with any other emotional, behavioral or mental health complaints. 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 Transition of care: patient was not received from another setting of care. 08:02 Acuity: JANET Level 3 jjr 08:02 Method Of Arrival: Ambulance jjr Triage Assessment: 08:11 General: Appears in no apparent distress, well nourished, well groomed, Behavior is jjr appropriate for age. Pain: Denies pain. HIV screening NA for this visit Offered previously. Neurological: Reports dizziness. Cardiovascular: Chest pain is denied. Respiratory: Airway is patent Respiratory effort is even, unlabored, Respiratory pattern is regular, Breath sounds are diminished bilaterally. Derm: Skin is dry, Skin is flushed, Skin temperature is warm. Historical: - Allergies: no known allergies; - Home Meds: 1. Advair Diskus 250-50 mcg/dose Inhl dsdv 1 puff 2 times per day (Last dose: 11/14/2016) 2. Singulair 10 mg Oral tab 1 tab once daily (Last dose: 11/14/2016) 3. albuterol sulfate 90 mcg/actuation Inhl HFAA 2 puffs every 4-6 hours for Acute Asthma Attack (Last dose: 11/15/2016) 4. Zyrtec 10 mg Oral TbDL 10 mg daily (Last dose: 11/14/2016) 5. hydrochlorothiazide 25 mg Oral tab 1 tab once daily (Last dose: 11/14/2016) 6. trazodone 50 mg Oral tab nightly (Last dose: 11/14/2016) 7. prazosin 2 mg Oral cap nightly (Last dose: 11/14/2016) - PMHx: Asthma; Hypertension; Seasonal Allergies; night terrors; - PSHx: Vasectomy (2013); PRK Eye Surgery (2009); Appendectomy; Tonsillectomy; Jaw repair; - Social history: Smoking status: Patient states was never smoker of tobacco. No barriers to communication noted, The patient speaks fluent Wolof. - Family history: Not pertinent. - : The pt / caregiver states he / she is not on anticoagulants. Home medication list is obtained from the patient. - Exposure Risk Screening:: None identified. Screenin:13 Screening information is obtained from the patient. Fall risk: No risks identified. jjr Assistance ADL's: requires no assistance with activities of daily living. Abuse/DV Screen: The patient / caregiver reports he/she is: not in a situation that causes fear, pain or injury. Nutritional screening: No deficits noted. Advance Directives: There is no active DNR order. home support is adequate. Assessment: 08:13 Neurological: Level of Consciousness is awake, alert, Oriented to person, place, time. jjr Cardiovascular: Rhythm is sinus rhythm. 09:15 General: Appears in no apparent distress, comfortable, Behavior is appropriate for age, kc3 cooperative. Pain: Denies pain. Neurological: Level of Consciousness is awake, alert, obeys commands, Oriented to person, place, time. Cardiovascular: Rhythm is sinus rhythm No ectopy. Respiratory: Respiratory effort is even, unlabored, Respiratory pattern is regular, symmetrical. Derm: Skin is pink, warm & dry. 10:08 General: Pt reports having 2 episodes of "passing out while sitting in bed when I start kc3 coughing and then I get tunnel vision." No distress noted at this time. Dr. Irma sifuentes. . 11:00 General: Appears in no apparent distress, comfortable, Behavior is appropriate for age, kc3 cooperative. Pain: Denies pain. Neurological: Level of Consciousness is awake, alert, obeys commands, Oriented to person, place, time. Cardiovascular: Rhythm is sinus rhythm. Respiratory: Respiratory effort is even, unlabored, Respiratory pattern is regular, symmetrical. Derm: Skin is pink, warm & dry. 12:18 General: Appears in no apparent distress, comfortable, Behavior is appropriate for age, kc3 cooperative. Pain: Denies pain. Neurological: Level of Consciousness is awake, alert, obeys commands, Oriented to person, place, time. Cardiovascular: Rhythm is sinus rhythm. Respiratory: Airway is patent Respiratory effort is even, unlabored, Respiratory pattern is regular, symmetrical, Reports cough that is non-productive. Derm: Skin is pink, warm & dry. 13:00 General: Appears in no apparent distress, comfortable, Behavior is appropriate for age, kc3 cooperative. Pain: Denies pain. Neurological: Level of Consciousness is awake, alert, obeys commands, Oriented to person, place, time. Cardiovascular: Rhythm is sinus rhythm. Respiratory: Respiratory effort is even, unlabored. Derm: Skin is pink, warm & dry. 14:10 General: Appears in no apparent distress, comfortable, Behavior is appropriate for age, kc3 cooperative. Pain: Denies pain. Neurological: Level of Consciousness is awake, alert, obeys commands, Oriented to person, place, time. Cardiovascular: Rhythm is sinus rhythm. Respiratory: Respiratory effort is even, unlabored, Respiratory pattern is regular, symmetrical. Derm: Skin is pink, warm & dry. 14:53 General: Appears in no apparent distress, comfortable, Behavior is appropriate for age, kc3 cooperative. Pain: Denies pain. Neurological: Level of Consciousness is awake, alert, obeys commands, Oriented to person, place, time. Cardiovascular: Rhythm is sinus rhythm. Respiratory: Respiratory effort is even, unlabored, Respiratory pattern is regular, symmetrical. Derm: Skin is pink, warm & dry. 15:20 General: Pt noted to have syncopal episode after coughing. Pt with no distress after kc3 episode. Vital signs stable. Dr. Irma sifuentes. . 16:17 General: Appears in no apparent distress, comfortable, Behavior is appropriate for age, kc3 cooperative. General: Pt noted to have syncopal episode while coughing. No distress noted. Pt reports no complaints at this time. Vital signs stable. Will continue to monitor. . Pain: Denies pain. Neurological: Level of Consciousness is awake, alert, obeys commands, Oriented to person, place, time. Cardiovascular: Rhythm is sinus rhythm. Respiratory: Respiratory effort is even, unlabored. Derm: Skin is pink, warm & dry. 17:12 General: Appears in no apparent distress, comfortable, Behavior is appropriate for age, kc3 cooperative. Pain: Denies pain. Neurological: Level of Consciousness is awake, alert, obeys commands, Oriented to person, place, time. Cardiovascular: Rhythm is sinus rhythm No ectopy. Respiratory: Airway is patent Respiratory effort is even, unlabored, Respiratory pattern is regular, symmetrical. Derm: Skin is pink, warm & dry. Vital Signs: 08:07 BP 126 / 80; Pulse 87; Resp 20; Temp 97.8(O); Pulse Ox 96% on R/A; Weight 108.86 kg jjr (R); Height 6 ft. 1 in. (185.42 cm) (R); Pain 0/10; 08:48 BP 124 / 75 RA Supine (auto/lg); Pulse 85; jjr 08:48 BP 129 / 85 RA Sitting (auto/lg); Pulse 97; jjr 08:49 BP 119 / 75 RA Standing (auto/lg); Pulse 109; jjr 10:06 BP 131 / 69 (auto/); kc3 10:06 Pulse 82 MON; Pulse Ox 98% ; kc3 10:36 BP 122 / 71 (auto/); kc3 10:36 Pulse 86 MON; Pulse Ox 97% ; kc3 11:07 BP 121 / 79 (auto/); kc3 11:07 Pulse 82 MON; Pulse Ox 97% ; kc3 11:21 Pulse 84 MON; Pulse Ox 98% ; kc3 11:44 Pulse 92 MON; Pulse Ox 95% ; kc3 12:20 Pulse 80 MON; Pulse Ox 97% ; kc3 13:47 BP 134 / 78 (auto/); kc3 13:48 Pulse 80 MON; Pulse Ox 96% ; kc3 14:04 Pulse 74 MON; Pulse Ox 96% ; kc3 14:19 Pulse 84 MON; Pulse Ox 96% ; kc3 14:42 Pulse 78 MON; Pulse Ox 97% ; kc3 15:05 Pulse 84 MON; Pulse Ox 97% ; kc3 15:20 Pulse 82 MON; Pulse Ox 97% ; kc3 15:44 Pulse 76 MON; Pulse Ox 97% ; kc3 16:01 Pulse 84 MON; Pulse Ox 96% ; kc3 16:10 BP 119 / 69 (auto/); kc3 16:10 Pulse 82 MON; Pulse Ox 97% ; kc3 16:40 BP 120 / 93 (auto/); kc3 16:40 Pulse 86 MON; Pulse Ox 95% ; kc3 17:15 BP 119 / 76; Pulse 87; Resp 18; Temp 98.1(TE); Pulse Ox 97% on R/A; Pain 0/10; kc3 08:07 Body Mass Index 31.66 (108.86 kg, 185.42 cm) jjr Vitals: 08:07 Glucose Measurement D-stick done by EMS. Log In Time N/A - ambulance arrival. jjr ED Course: 08:00 Patient visited by Olga Velazquez, Sheet Mill Supervisor. deg 08:00 Patient moved to Waiting deg 08:01 Sagrario Mccall, RN is Primary Nurse. jjr 08:01 Patient moved to 18 jjr 08:04 Triage Initiated jjr 08:13 Patient visited by Sagrario Mccall, LETICIA. jjr 08:13 The patient / caregiver is instructed regarding the plan of care and ED course. Cardiac jjr monitor on. Pulse ox on. NIBP on. 08:15 Deya Doll MD is Attending Physician. sd1 08:20 Patient visited by Deya Doll MD. sd1 08:33 MED Profile Sent. jjr 08:33 CBC with Diff Sent. jjr 08:35 EKG done. (by ED staff). Reviewed by Deya Doll MD. rn1 08:39 -Influenza A&B Rapid Antigen - Nose Sent. jjr 09:17 Patient visited by Sissy Allen RN. kc3 09:44 EKG-ADULT Returned. EDMS 09:48 Chest, 2 View (pa\\E\\lat) Returned. EDMS 09:59 Patient visited by Yakov Hayden PCA. jlf 10:10 [facility] Payment Agreement was scanned into Panjo and attached to record. lg 10:12 Maintain field IV. Dressing intact. Site clean & dry. Gauge & site: 18G left AC. kc3 11:15 Patient moved to OBSERVATION sd1 12:00 Patient visited by Sissy Allen,LETICIA. kc3 12:19 Patient visited by Sissy Allen,LETICIA. kc3 13:25 Narendra Atkinson is Hospitalizing Provider. sd1 13:50 D-Dimer Quant Sent. kc3 14:25 Patient visited by Sissy Allen,LETICIA. kc3 15:07 T-Sheet-- Draft Copy was scanned into Panjo and attached to record. gb 15:07 PCR was scanned into Panjo and attached to record. gb 15:42 Patient visited by Sissy Allen RN. kc3 17:15 No procedures done that require assistance. kc3 11/16 09:44 ECG/EKG was scanned into Panjo and attached to record. gb Administered Medications: 11/15 08:48 Drug: NS 0.9% 1000 ml [sodium chloride 0.9 % intravenous solution] Route: IV; Rate: jjr bolus; Site: left antecubital; 16:34 Follow up: IV Status: Completed infusion kc3 09:41 Drug: Sudafed 60 mg Route: PO; kc3 Order Results: Lab Order: CBC with Diff; SPEC'M 11/15/16 08:29 Test: WHITE BLOOD COUNT; Value: 6.6; Range: 4.0-10.0; Units: K/mm3; Status: F Test: RED BLOOD COUNT; Value: 4.54; Range: 4.30-6.10; Units: M/mm3; Status: F Test: HEMOGLOBIN; Value: 13.5; Range: 14.0-18.0; Abnormal: Below low normal; Units: g/dl; Status: F Test: HEMATOCRIT; Value: 38.1; Range: 42.0-52.0; Abnormal: Below low normal; Units: %; Status: F Test: MEAN CORPUSCULAR VOLUME; Value: 83.7; Range: 80.0-96.0; Units: fl; Status: F Test: MEAN CORPUSCULAR HEMOGLOBIN; Value: 29.7; Range: 27.0-33.0; Units: pg; Status: F Test: MEAN CORPUSCULAR HGB CONC; Value: 35.5; Range: 32.0-36.5; Units: g/dl; Status: F Test: RED CELL DISTRIBUTION WIDTH; Value: 12.4; Range: 11.5-14.5; Units: %; Status: F Test: PLATELET COUNT, AUTOMATED; Value: 264; Range: 150-450; Units: k/mm3; Status: F Test: NEUTROPHILS %; Value: 67.7; Range: 36.0-66.0; Abnormal: Above high normal; Units: %; Status: F Test: LYMPH %; Value: 16.7; Range: 24.0-44.0; Abnormal: Below low normal; Units: %; Status: F Test: MONO %; Value: 6.1; Range: 0.0-5.0; Abnormal: Above high normal; Units: %; Status: F Test: EOS %; Value: 7.6; Range: 0.0-3.0; Abnormal: Above high normal; Units: %; Status: F Test: BASO %; Value: 0.5; Range: 0.0-1.0; Units: %; Status: F Test: LARGE UNSTAINED CELL %; Value: 1.4; Range: 0.0-4.0; Units: %; Status: F Test: NEUTROPHILS #; Value: 4.5; Range: 1.8-7.7; Units: K/mm3; Status: F Test: LYMPH #; Value: 1.1; Range: 1.5-4.5; Abnormal: Below low normal; Units: K/mm3; Status: F Test: MONO #; Value: 0.4; Range: 0.0-0.8; Units: K/mm3; Status: F Test: EOS #; Value: 0.5; Range: 0.0-0.50; Units: K/mm3; Status: F Test: BASO #; Value: 0.0; Range: 0.0-0.2; Units: K/mm3; Status: F Test: LARGE UNSTAINED CELL #; Value: 0.1; Range: 0.0-0.4; Units: K/mm3; Status: F Lab Order: MED Profile; SPEC'M 11/15/16 08:29 Test: GLUCOSE, FASTING; Value: 97; Range: 70-105; Units: MG/DL; Status: F Test: BLOOD UREA NITROGEN; Value: 18; Range: 7-18; Units: MG/DL; Status: F Test: CREATININE FOR GFR; Value: 1.36; Range: 0.70-1.30; Abnormal: Above high normal; Units: MG/DL; Status: F Test: GLOMERULAR FILTRATION RATE; Value: > 60.0; Range: >60; Status: F Test: SODIUM LEVEL; Value: 139; Range: 136-145; Units: MEQ/L; Status: F Test: POTASSIUM SERUM; Value: 3.8; Range: 3.5-5.1; Units: MEQ/L; Status: F Test: CHLORIDE LEVEL; Value: 102; Range: 98-107; Units: MEQ/L; Status: F Test: CARBON DIOXIDE LEVEL; Value: 29; Range: 21-32; Units: MEQ/L; Status: F Test: ANION GAP; Value: 8; Range: 8-16; Units: MEQ/L; Status: F Test: CALCIUM LEVEL; Value: 9.1; Range: 8.5-10.1; Units: MG/DL; Status: F Test Note: ; Units are mL/min/1.73 m2 Chronic Kidney Disease Staging per NKF: Stage I & II GFR >=60 Normal to Mildly Decreased Stage III GFR 30-59 Moderately Decreased Stage IV GFR 15-29 Severely Decreased Stage V GFR <15 Very Little GFR Left ESRD GFR <15 on CAREER TECHNICAL COUNSELOR Lab Order: -Influenza A&B Rapid Antigen - Nose; SPEC'M 11/15/16 08:29 Test: INFLUENZA A RAPID SCR by ICA; Value: INFLUENZA A RESULTS NEGATIVE; Status: F Test: INFLUENZA A RAPID SCR by ICA; Value: Comments:; Status: F Test: INFLUENZA B RAPID SCR by ICA; Value: INFLUENZA B RESULTS NEGATIVE; Status: F Test Note: ; The Influenza test is a direct rapid immunoassay for the qualitative detection of Influenza viral antigen. Cell culture (Viral Culture) testing should be considered to confirm NEGATIVE results and to assist in detecting other viruses that can provide similar clinical symptoms. Please contact the lab within 24 hours ([phone]) if confirmatory testing is desired. Lab Order: CARDIAC MARKER PANEL; SPEC'M 11/15/16 13:29 Test: CPK CREATINE PHOSPHOKINASE; Value: 194; Range: 39-308; Units: U/L; Status: F Test: CK-MB VALUE MASS; Value: 2.9; Range: 0.0-3.6; Units: NG/ML; Status: F Test: MB/CK RELATIVE INDEX; Value: 1.49; Range: < OR =4; Status: F Test: TROPONIN I; Value: < 0.02; Range: < 0.10; Units: NG/ML; Status: F Test Note: ; DIAGNOSIS CRITERIA MMB ng/ml Relative Index (RI) NON-AMI < or = 5 N/A MANLEY ZONE > 5 < or = 4 AMI > 5 > 4 Lab Order: CARDIAC INJURY PROFILE; SPEC'M 11/15/16 08:29 Test: CPK CREATINE PHOSPHOKINASE; Value: 211; Range: 39-308; Units: U/L; Status: F Test: CK-MB VALUE MASS; Value: 3.3; Range: 0.0-3.6; Units: NG/ML; Status: F Test: MB/CK RELATIVE INDEX; Value: 1.56; Range: < OR =4; Status: F Test Note: ; DIAGNOSIS CRITERIA MMB ng/ml Relative Index (RI) NON-AMI < or = 5 N/A MANLEY ZONE > 5 < or = 4 AMI > 5 > 4 Lab Order: TROPONIN; SPEC'M 11/15/16 08:29 Test: TROPONIN I; Value: < 0.02; Range: < 0.10; Units: NG/ML; Status: F Test Note: ; Troponin I Reference Interval for [employer] LOCI: 99th Percentile= 0.00-0.045 ng/ml Risk Stratification: <= 0.10 ng/ml Decreased Risk for Adverse Clinical Events. 0.10-1.50 ng/ml Increased Risk for Adverse Clinical Events. Evaluation of additional criterion and/or repeat testing in 2-6 hours is suggested to rule out myocardial damage. >= 1.50 ng/ml Indicative of Myocardial Injury. Lab Order: D-Dimer Quant; SPEC'M 11/15/16 13:48 Test: D-DIMER QUANT; Value: 270.7; Range: <500; Units: ng/ml; Status: F Radiology Order: EKG-ADULT Test: EKG-ADULT REASON FOR EXAMINATION: Syncope; Stationary ECG Study; 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 Two views show the lungs somewhat hypoinflated but; without infiltrate, effusion or mass. There is minor lateral pleural thickening; in both sides. No apical thickening scarring or pneumothorax. There are some; crowded markings in the bases bilaterally. The heart size is not enlarged.; There is no vascular redistribution or pulmonary edema. The aorta is normal.; Airway is intact.; ; The thorax shows no compression deformity of focal lesion. No free air under the; diaphragm.; ; IMPRESSION:; ; 1. Some mild hypoinflation with crowded markings in the bases but no infiltrate,; effusion, cardiomegaly, edema, mass or other significant finding.; ; ; Signed by; Molina Reed MD 11/15/2016 09:21 A; Outcome: 13:25 Decision to Hospitalize by Provider. sd1 17:15 Discharge Assessment: patient administered narcotics - no. The following High Risk kc3 Discharge criteria are identified: None. Admitted to PCU accompanied by nurse, on monitor, with chart. Condition: stable. No special radiology studies were completed. Property :Personal belongings accompany Pt. 17:17 Patient left the ED. kc3 Signatures: Dispatcher [employer] EDMS Deya Doll MD MD sd1 Olga Velazquez, Sheet Mill Supervisor Unit deg Tiera Brothers, Reg Reg gb Karie Ho, Reg Reg lg Sagrario Mccall, RN RN Yakov Dowd, MOLD CARPENTER MOLD CARPENTER Jean Marie Landers rn1 Sissy Allen,RN RN kc3 Chart Complete MTDD
== END 2016-11-16 14:20 | disposition home or self-care (01) ==
LOC: M ED 07:59 → M ED INP 13:55 → M PCU 17:23
PROVIDERS: ADMIT Internal Medicine; ATTEND Internal Medicine
DX: R55 Syncope and collapse (principal); R05 Cough; N17.9 Acute kidney failure, unspecified; R07.9 Chest pain, unspecified; R94.31 Abnormal electrocardiogram [ECG] [EKG]; I10 Essential (primary) hypertension; J45.909 Unspecified asthma, uncomplicated; G47.30 Sleep apnea, unspecified; F51.4 Sleep terrors [night terrors]; Z79.899 Other long term (current) drug therapy
CPT/HCPCS: 36415; 71020; 80048; 80053; 82550; 82553; 83735; 85025; 85379; 87804; 93005; 93041; 96360; 96361; 96372; 99285; J1650

== ENCOUNTER → 2017-05-10 | Day surgery (SDC) | payer OTHER ==
[~2017-05-10] VITALS: Ht 185.4 cm; Wt 113.4 kg
[~2017-05-10] MED LIST: ADV250INH INH; ALBU17IN INH; BUPIVACAINE HCL 0.25% 30 ML VIAL As Ordered ONE; BUSP10TA PO; CETI10TA PO; GLYCOPYRROLATE INJ 0.2 MG/ML 2 ML VIAL As Ordered ONE; GUAIDM5UD PO; HYDR25TAB PO; KETOROLAC 30 MG/ML VIAL (J1885) IV PRN; KETOROLAC 60 MG/2 ML VIAL (J1885) As Ordered ONE; LIDOCAINE 1% SDV INJ 30 ML VIAL As Ordered ONE; LIDOCAINE 2% INJ 100 MG/5 ML SDV (FOR ANES.) As Ordered ONE; LR 1,000 ML IV ONE; LR 1,000 ML IV SCH; MEPERIDINE INJ 25 MG/ML VIAL (J2175) IV PRN; METOCLOPRAMIDE INJ 10MG/2ML VIAL (J2765) IV PRN; MIDAZOLAM INJ 2 MG/2 ML VIAL (J2250) As Ordered ONE; MIDAZOLAM INJ 2 MG/2 ML VIAL (J2250) IV PRN; NEOSTIGMINE 1MG/ML 5 ML SYRINGE (J2710) As Ordered ONE; NORCO, ANEXSIA 5/325MG TABLET (HYDROcodone/ACETAMINOPHEN) PO PRN; ONDANSETRON 4MG/2ML VIAL (J2405) As Ordered ONE; ONDANSETRON 4MG/2ML VIAL (J2405) IV PRN; PRAZ2CAP PO; PROPOFOL 200 MG/20 ML VIAL As Ordered ONE; ROCURONIUM BROMIDE 50 MG/5 ML VIAL/SYRINGE As Ordered ONE; SING10TA32 PO; TRAZ25TA PO; dexameTHASONE 4 MG/ML 1ML VIAL (J1100) As Ordered ONE; fentaNYL 100 MCG/2 ML INJECTION (J3010) IV PRN; fentaNYL 250 MCG/5 ML INJECTION (J3010) As Ordered ONE
--- NOTE | 2017-05-10 12:27 | ROOPDOC ---
[facility] Report Of Operation Report of Operation DATE OF PROCEDURE: 05/10/17 PREPROCEDURE DIAGNOSES: right inguinal hernia. POSTPROCEDURE DIAGNOSES: right indirect inguinal hernia, right cord lipoma. PROCEDURE: Robotic Assisted Laparoscopic Right inguinal hernia repair. SURGEON: Marilia Pritchett MD ENVIRONMENTAL ENGINEERING TECHNICIAN: Alivia Coleman NP ANESTHESIA: general. ESTIMATED BLOOD LOSS: Approximately 10 mL. COMPLICATIONS: none. REMARKS: small right indirect inguinal hernia containing cord lipoma. PROCEDURE NOTE: medium sized (3 x 5 inch) 3d-max light mesh placed preperitoneally. DESCRIPTION OF PROCEDURE: Patient received 2 g of Ancef IV preoperatively for wound prophylaxis. Patient was brought to the operating room, placed supine on the operating table. Compression boots placed in both lower extremities for DVT prophylaxis. After adequate general anesthesia started, he was placed on a lithotomy position. A boston catheter placed without difficulty. His abdomen and groin/pelvic area then prepped and draped in the usual sterile fashion. After a surgical timeout we began our surgery Entry to the abdomen done through a small incision above the umbilical skin cleft. A Veress needle is inserted on a controlled fashion. CO2 insufflation started to pressure 15 mmHg. Using the same incision a 5 mm Visiport was then placed under direct vision of laparoscope. The insertion site was inspected for injury and none was found. Patient was then positioned on a Trendelenburg position with the symptomatic (left) side tilted upwards for adequate view of the hernia defect. 2 working ports placed to the right and left of the umbilicus along the same line. The da Emily robot to our was then positioned in between the patient's legs and the trochars doctor onto the robot. I then unscrubbed and to control of the camera and the laparoscopic instruments at the surgeon's console.. OPERATIVE FINDINGS: No clear hernia fascial defect was noted over the indirect and direct hernia space though with my volleyball assistant coach pushing on the inguinal canal slight bulging at the indirect hernia space was noted. The peritoneum was opened up about 3 cm above the superior edge of the fascial defect of the inguinal hernia starting at the medial umbilical ligament going in an arc-like fashion laterally towards the level of the anterior superior iliac spine. This was then dissected mostly bluntly away from the abdominal wall. On approaching the inguinal hernia the a small extension of the peritoneum going towards the internal ring though not beyond the ring was pulled back into the preperitoneal space and carefully dissected off the testicular vessels and vas deferens. The contents of the inguinal canal was further dissected free and a small lobulated fat consistent with a cord lipoma was found and dissected free from the rest of the structures. Both the testicular vessels and vas deferens were promptly identified and from the cord lipoma and followed throughout its course after exiting the inguinal ring. . The preperitoneal space was dissected medially to expose the pubic tubercle up towards the symphysis pubis. The remaining areolar fibers were bluntly dissected away from the abdominal wall to create space for the mesh. After fully dissecting the preperitoneal space, we checked for adequate hemostasis. I chose a medium sized mesh given the patient's body habitus as well as the presence of only a small cord lipoma found and exploration. A medium sized 3-D Max light mesh was chosen. This was placed through the laparoscopic port into the abdomen. This was positioned in the preperitoneal space abutting the abdominal wall to adequately cover the indirect as well as direct hernia space. I made sure the mesh was laying flat on the abdominal wall. This was secured onto the pubic tubercle with a single stitch of 2-0 Vicryl. Again after checking for hemostasis the preperitoneal space was then closed by suturing the peritoneal incision using a running stitch of 2-0V LOC. . Prior to coming out a survey of the abdomen was done to make sure no inadvertent injury occurred. I then scrubbed back in. The abdomen was deflated and all ports removed. The 3 incisions were closed with 4-0 Monocryl in a subcuticular fashion. Dermabond was used for dressing. Boston catheter was removed. Patient was then promptly awakened and extubated and brought to the recovery room stable . All counts of sponges and instruments were verified correct. MERRY PRITCHETT MD May 10, 2017 12:27
[2017-05-10] MEDS: PERCOCET 5MG/325MG TAB PO PRN ×2 (13:15→13:45)
[2017-05-10 14:55] VITALS: BP 137/94
== END | disposition home or self-care (01) ==
LOC: M SDC 07:12
PROVIDERS: ATTEND Surgery
DX: K40.90 Unilateral inguinal hernia, without obstruction or gangrene, not specified as recurrent (principal); D17.6 Benign lipomatous neoplasm of spermatic cord; F32.9 Major depressive disorder, single episode, unspecified; F41.9 Anxiety disorder, unspecified; I10 Essential (primary) hypertension; J45.909 Unspecified asthma, uncomplicated; F43.10 Post-traumatic stress disorder, unspecified; R06.83 Snoring; R06.09 Other forms of dyspnea; G47.33 Obstructive sleep apnea (adult) (pediatric); Z79.899 Other long term (current) drug therapy
CPT/HCPCS: 49650; 88304; C1781; J0690; J1100; J1885; J2250; J2405; J2710; J3010

== ENCOUNTER → 2017-08-08 | Outpatient (CLI) | payer OTHER ==
[~2017-08-08] MED LIST changes: -BUPIVACAINE HCL 0.25% 30 ML VIAL As Ordered ONE; +GASTROGRAFIN SOLUTION 30ML (Q9963) As Ordered ONE; -GLYCOPYRROLATE INJ 0.2 MG/ML 2 ML VIAL As Ordered ONE; +ISOVUE-370 76% 100ML VIAL (Q9967) As Ordered ONE; -KETOROLAC 30 MG/ML VIAL (J1885) IV PRN; -KETOROLAC 60 MG/2 ML VIAL (J1885) As Ordered ONE; -LIDOCAINE 1% SDV INJ 30 ML VIAL As Ordered ONE; -LIDOCAINE 2% INJ 100 MG/5 ML SDV (FOR ANES.) As Ordered ONE; -LR 1,000 ML IV ONE; -LR 1,000 ML IV SCH; -MEPERIDINE INJ 25 MG/ML VIAL (J2175) IV PRN; -METOCLOPRAMIDE INJ 10MG/2ML VIAL (J2765) IV PRN; -MIDAZOLAM INJ 2 MG/2 ML VIAL (J2250) As Ordered ONE; -MIDAZOLAM INJ 2 MG/2 ML VIAL (J2250) IV PRN; -NEOSTIGMINE 1MG/ML 5 ML SYRINGE (J2710) As Ordered ONE; -NORCO, ANEXSIA 5/325MG TABLET (HYDROcodone/ACETAMINOPHEN) PO PRN; -ONDANSETRON 4MG/2ML VIAL (J2405) As Ordered ONE; -ONDANSETRON 4MG/2ML VIAL (J2405) IV PRN; -PROPOFOL 200 MG/20 ML VIAL As Ordered ONE; -ROCURONIUM BROMIDE 50 MG/5 ML VIAL/SYRINGE As Ordered ONE; -dexameTHASONE 4 MG/ML 1ML VIAL (J1100) As Ordered ONE; -fentaNYL 100 MCG/2 ML INJECTION (J3010) IV PRN; -fentaNYL 250 MCG/5 ML INJECTION (J3010) As Ordered ONE
--- NOTE | 2017-08-09 03:09 | REP ---
Clinical: Right groin pain. Technique: Axial contrast enhanced images from the lung bases to the pubic symphysis using oral and 100 ml Isovue 370 intravenous contrast material with coronal and sagittal re-formations. Comparison: 08/07/2017. Findings: Lung bases demonstrate mild dependent changes. Visualized heart and pericardium normal. Liver, spleen, pancreas, bilateral adrenal glands and kidneys are normal. Cholelithiasis cannot be excluded without CT evidence for acute cholecystitis. The enteric system is without obstruction or acute inflammatory process. Scattered sigmoid diverticula noted without acute diverticulitis. Pelvis demonstrates normal bladder and age appropriate prostate/seminal vesicles. No obvious adenopathy, ascites, or free air. No mass lesion. 2 cm fat containing periumbilical hernia noted. Abdominal aorta and vasculature without aneurysm or dissection. Surrounding musculoskeletal structures without focal osseous abnormality. Impression: 2 cm fat containing umbilical hernia. Possible cholelithiasis without CT evidence for acute cholecystitis. Sigmoid diverticula without acute diverticulitis. Signed by Wade Givens MD 08/09/2017 03:01 A
== END ==
LOC: M RAD 15:00
PROVIDERS: ATTEND Surgery
DX: K44.9 Diaphragmatic hernia without obstruction or gangrene (principal); K57.30 Diverticulosis of large intestine without perforation or abscess without bleeding; R10.31 Right lower quadrant pain
CPT/HCPCS: 74177; Q9963; Q9967